=== PATIENT | male | born 1970 | race Asian ===

== ENCOUNTER 2016-06-05 07:15 | Day surgery (SDC) | payer OTHER ==
[~2016-06-05] VITALS: Ht 170.2 cm; Wt 66.4 kg
[2016-06-05] MEDS ORDERED: GLIPIZIDE (07:44)
[2016-06-05] MEDS ORDERED: GLYBURIDE/METFORMIN (07:44)
[2016-06-05] MEDS ORDERED: LOSARTAN (07:44)
[2016-06-05] MEDS ORDERED: ASPIRIN (07:44)
[2016-06-05] MEDS ORDERED: SIMVASTATIN (07:44)
[2016-06-05] MEDS ORDERED: METFORMIN (07:44)
[2016-06-05 07:48] VITALS: Ht 170.2 cm; Wt 66.4 kg
[2016-06-05 08:07] VITALS: BP 95/53; PULSE 54; RESP 24
[2016-06-05] MEDS ORDERED: LIDOCAINE 4% SOLUTION 50 ML BTL ONE (08:10)
[2016-06-05] MEDS ORDERED: FENTAnyl 50 MCG/ML VIAL ONE (08:48)
[2016-06-05] MEDS ORDERED: MIDAZOLAM 1 MG/ML 2 ML INJ ONE ×2 (08:48)
[2016-06-05 09:20] VITALS: BP 97/59; PULSE 54; RESP 15
--- NOTE | 2016-06-06 06:56 | GILP ---
DATE OF PROCEDURE: 06/05/2016 PROCEDURE: Esophagogastroduodenoscopy. PREOPERATIVE DIAGNOSIS: The patient is presenting with a history of chronic heartburn, unresponsive to routine therapy which includes famotidine and omeprazole. Rule out Etienne esophagus, rule out peptic ulcer disease. POSTOPERATIVE DIAGNOSES: 1. Mild reflux esophagitis, Highland classification A. 2. Antral erosions. 3. Fundal gastritis. DESCRIPTION OF PROCEDURE: After informed written consent was obtained, the patient was asked to lie on the left lateral side, a total of 4 mg of Versed and 50 mcg of fentanyl was given as intravenous anesthesia. When the patient became somnolent, the Olympus video upper endoscope was introduced into the orophar ynx, then into the esophagus. Esophagus showed evidence of erythema just above the GE junction in a few areas indicating mild reflux esophagitis, Highland classification A. Biopsies were obtained . The scope at this time was advanced into the stomach. Stomach showed evidence of erosion in the antrum of the stomach and fundus of the stomach showed evidence of a few areas of erythema. Endosco pe at this time was advanced into the duodenum. Duodenum appeared normal up to the end of the third portion. At this time, endoscope was withdrawn. Biopsy was done from the antrum, lesser curvature and the fundus to rule out H. pylori infection. The procedure was terminated. PLAN: Recommend change omeprazole to Dexilant 60 mg a day for 2 months, the pill to be taken every day in the morning. Dictated By: AMANDA FOX/NTS Conf#: [id number] DID#: [id number] CC: [facility];*End*
== END 2016-06-05 10:20 | disposition home or self-care (01) ==
LOC: GIL 07:15
PROVIDERS: ATTEND Internal Medicine Gastroenterology
DX: K21.9 Gastro-esophageal reflux disease without esophagitis (principal); K29.60 Other gastritis without bleeding; I25.10 Atherosclerotic heart disease of native coronary artery without angina pectoris; I10 Essential (primary) hypertension
CPT/HCPCS: 43239; J2250; J3010; Z7610; 88305; 88312

== ENCOUNTER 2016-09-01 11:55 | Emergency (ER) | payer OTHER ==
[~2016-09-01] VITALS: Ht 165.1 cm; Wt 65.5 kg
[~2016-09-01 11:55] MED LIST: ASPIRIN; GLIPIZIDE; GLYBURIDE/METFORMIN; LOSARTAN; METFORMIN; SIMVASTATIN
[2016-09-01 12:27] VITALS: Ht 165.1 cm; Wt 65.5 kg
--- NOTE | 2016-09-01 14:40 | RADRPT ---
PROCEDURE: CT Brain without contrast. CLINICAL INDICATION: A TECHNIQUE: CT scan of the brain was performed on a multidetector high-resolution CT scan. Axial im aging was obtained of the brain without contrast administration. Coronal and sagittal reformatted i mages were obtained from the axial source images. Standard CT scan of the head without contrast prot ocols were performed. The total exam CTDI equals 44.19 mGy and the total exam DLP equals 630.2 mGy-cm. One or more of the following dose reduction techniques were used: - Automated exposure control. - Adjustment of the mA and/or kV according to patient size. Use of iterative reconstruction technique. COMPARISON: None. FINDINGS: The ventricular system and peripheral CSF spaces are unremarkable. Negative for intracranial masses hemorrhages or midline shift. The mcintyre-white matter junction is unremarkable. The bones and chemo rium are intact. Paranasal sinuses and mastoids are unremarkable. IMPRESSION: Negative CT scan of the head without contrast. RPTAT:AAJJ Physician Dayne Date Time Electronically viewed and signed by Physician Dayne on 09/01/2016 14:39 BM/
--- NOTE | 2016-09-01 14:58 | ERD ---
ER Documentation Chief Complaint Date/Time DATE: 09/01/16 TIME: 14:55 Chief Complaint MOUTH SORES X5 MTHS, HAD TOOTH EXTRACTION 8MTHS HPI Patient is a 46-year-old male who presents with vague complaints of strange tasting saliva on the left side of his face that he has had for 5 months secondary to having his teeth pulled. He denies fever. Denies any difficulty eating or drinking or breathing. He does also states he has a headache. He would like to get a CT scan to see if it shows anything. He knows that he needs to follow-up with the ears nose and throat doctor but he has not yet done so. ROS All systems reviewed and are negative except as per history of present illness. Medications Home Meds Reported Medications [Losartan] No Conflict Check 06/05/16 [Aspirin] No Conflict Check 06/05/16 [Simvastatin] No Conflict Check 06/05/16 [Metformin] No Conflict Check 06/05/16 [Glyburide/Metformin] No Conflict Check 06/05/16 [Glipizide] No Conflict Check 06/05/16 Allergies Allergies: Coded Allergies: No Known Allergy (Unverified , 06/05/16) PMhx/Soc History of Surgery: Yes (CARDIAC CATHERERIZATION) Anesthesia Reaction: No Hx Neurological Disorder: No Hx Respiratory Disorders: No Hx Cardiac Disorders: Yes (CAD, HYPERLPIDEMIA, HTN) Hx Psychiatric Problems: No Hx Miscellaneous Medical Probl: No Hx Alcohol Use: No Hx Substance Use: No Hx Tobacco Use: Yes FmHx Family History: No diabetes Physical Exam Vitals Vital Signs Date Time Temp Pulse Resp B/P Pulse Ox O2 Delivery O2 Flow Rate FiO2 09/01/16 12:27 97.8 62 18 136/69 99 Physical Exam General: well developed, well nourished, alert, nontoxic, no distress Head: normocephalic, atraumatic Neck: Supple, nontender, no lymphadenopathy, no midline tenderness Ears: no tenderness over mastoids bilaterally, TMs nonerythematous, no exudates in canal Oropharynx: no tonsilar erythema or edema, uvula midline, no exudates, no kissing tonsils, no drooling Respiratory: Clear to auscaultation bilaterally, speaks in full sentences, no use of accesory muscles or labored breathing, no rales, ronchi, or wheezing Cardiovascular: RRR, No murmurs Back: no midline tenderness, no step offs or bony abnormalities, sensation to light touch in tact Extremities: moving all extremities normally, normal gait, no edema Skin: no visible rashes Neuro: , normal speech, 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 His vital signs are all normal and he is well-appearing in no distress. CT scan was negative. He knows he needs a follow-up with ENT but he has not yet done so and I gave him a referral to ENT as well as copy of CTs we can follow up with primary care. No evidence of dental infection. Recommended this patient follow up with her primary care doctor within 48 hours or return to the emergency room for any worsening of symptoms. However this time I do believe there is suitable for outpatient management. I answered all their questions and they agreed with the plan and were discharged home. Departure Diagnosis: Primary Impression: Pain, dental Additional Impression: Headache Condition: Stable KARMA BECK PA-C Sep 01, 2016 14:58
== END 2016-09-01 15:20 | disposition home or self-care (01) ==
LOC: FTE 11:55
DX: K08.89 Other specified disorders of teeth and supporting structures (principal); R51 Headache; I10 Essential (primary) hypertension; I25.10 Atherosclerotic heart disease of native coronary artery without angina pectoris; Z79.82 Long term (current) use of aspirin; Z79.84 Long term (current) use of oral hypoglycemic drugs
CPT/HCPCS: 70450